=== PATIENT | male | born 2000 | race Caucasian/White ===

== ENCOUNTER 2018-12-27 08:21 | Emergency (ER) | payer OTHER ==
[2018-12-27] MEDS ORDERED: Fentanyl 100 MCG/2 ML VIAL ONE (09:48)
[2018-12-27] MEDS ORDERED: Ketorolac Tromethamine 60 MG/2 ML VIAL ONE (09:49)
--- NOTE | 2018-12-27 10:15 | RAD ---
LEFT HAND 3 VIEWS: Date: 12/27/18 HISTORY: Crush injury. 3rd and 4th finger pain. COMPARISON: None. FINDINGS: There is a sagittally oriented fracture of the medial margin of the tuft of distal phalanx ringer fin hernan. There is adjacent soft tissue gas. IMPRESSION: Open fracture, sagittally oriented, medial margin distal tuft of ring finger. POS: [facility]
--- NOTE | 2018-12-27 10:16 | RAD ---
RIGHT HAND 3 VIEWS: Date: 12/27/18 COMPARISON: None. FINDINGS: There is a comminuted fracture through the tuft of distal phalanx of ring finger. Overlying soft tiss ue laceration. IMPRESSION: Comminuted fracture tuft of distal phalanx of ring finger. POS: [facility]
[2018-12-27] MEDS ORDERED: CEFAZOLIN 2 GM in Premix Bag 1 BAG IVPB SCH (11:00)
[2018-12-27 11:08] LABS: #Basophils 0.1 thou/uL (0.0-0.2); #Eosinphils 0.1 thou/uL (0.0-0.7); #Lymphocytes 1.5 thou/uL (1.20-3.40); #Monocytes 0.8 thou/uL (0.11-0.59); #Neutrophils 8.9 thou/uL (1.40-6.50); %Eosinophils 0.8 % (0.0-10.0); %Lymphocytes 13.3 % (28.0-48.0); %Monocytes 6.6 % (0.0-4.0); %Neutrophils 78.3 % (31.0-61.0); Hemoglobin 15.8 g/dL (14.0-18.0); Mean Corpuscular Hemoglobin 30.1 pg (25.0-35.0); Mean Corpuscular Volume 88.7 fL (78.0-98.0); Mean Platelet Volume 8.2 fL (7.4-10.4); Platelet Count 274 thou/uL (130-400); RBC Distribution Width 11.4 % (11.5-14.5); Red Blood Cell (RBC) Count 5.25 mill/uL (4.00-5.20); White Blood Cell (WBC) Count 11.4 thou/uL (4.8-10.8)
[2018-12-27 11:23] LABS: Anion Gap 13 mmol/L (10-20); BUN (Urea Nitrogen) 21 mg/dL (8.9-20.6); CK (CPK) 144 U/L (30-200); Calc. Creatinine Clearance 0 mL/min (70-130); Calcium 9.5 mg/dL (7.8-10.44); Carbon Dioxide 23 mmol/L (22-29); Chloride 104 mmol/L (98-107); Estimated GFR-MDRD Greater than 90; Glucose 101 mg/dL (70-105); Potassium 3.5 mmol/L (3.5-5.1); Sodium 136 mmol/L (136-145)
[2018-12-27] MEDS ORDERED: Morphine 4 MG/ML VIAL ONE (12:42)
== END 2018-12-27 13:18 | disposition short-term general hospital (02) ==
LOC: ERS 08:21
DX: S62.635B Displaced fracture of distal phalanx of left ring finger, initial encounter for open fracture (principal); S62.634A Displaced fracture of distal phalanx of right ring finger, initial encounter for closed fracture; W23.0XXA Caught, crushed, jammed, or pinched between moving objects, initial encounter
CPT/HCPCS: 80048; 82550; 85025; 96365; 96372; 96375; J0690; J1885; J2270; J3010